=== PATIENT | male | born 1945 | race Caucasian/White ===

== ENCOUNTER 2018-04-15 07:16 | Day surgery (SDC) | payer OTHER ==
[~2018-04-15 07:16] MED LIST: EPINEPHrine 1 MG INJ; LIDOCAINE 1% (MPF) 10 ML INJ; TIMOLOL 0.5% 5 ML OPH
[2018-04-15] MEDS: PHENYLephrine 10% 5 ML OPH OPER (08:14)
[2018-04-15] MEDS: CYCLOPENTOLATE 2% 2 ML OPH OPER (08:15)
[2018-04-15] MEDS: NEPAFENAC 0.1% 3 ML OPH OPER (08:15)
[2018-04-15] MEDS: MOXIFLOXACIN 0.5% 3 ML OPH OPER (08:20)
[2018-04-15] MEDS ORDERED: SODIUM BICARBONATE (IV ADD) 50 ML (08:35)
[2018-04-15] MEDS ORDERED: BUPIVACAINE 0.75% (MPF) 10 ML INJ (08:42)
[2018-04-15] MEDS ORDERED: LIDOCAINE 2% (SDV) 5 ML INJ ×2 (08:42→09:22)
[2018-04-15] MEDS ORDERED: LIDOCAINE 1% (MPF) 10 ML INJ (08:42)
[2018-04-15] MEDS ORDERED: MIDAZOLAM 1 MG/ML 2 ML INJ (09:21)
[2018-04-15] MEDS ORDERED: PROPOFOL 20 ML (09:22)
[2018-04-15] MEDS ORDERED: FAMOTIDINE 20 MG INJ (09:23)
[2018-04-15] MEDS ORDERED: ONDANSETRON 4 MG INJ (09:23)
[2018-04-15] MEDS ORDERED: FENTAnyl 50 MCG/ML VIAL (09:23)
[2018-04-15] MEDS ORDERED: DIPHENHYDRAMINE 50 MG INJ IV (09:30)
[2018-04-15] MEDS ORDERED: HYDROmorphONE 1 MG/5 ML IV SYRINGE IV (09:30)
[2018-04-15] MEDS ORDERED: ONDANSETRON 4 MG INJ IV (09:30)
[2018-04-15] MEDS ORDERED: MEPERIDINE 25 MG INJ IV (09:30)
[2018-04-15] MEDS ORDERED: FENTAnyl 50 MCG/ML VIAL IV (09:30)
[2018-04-15] MEDS ORDERED: PROCHLORPERAZINE 10 MG INJ IV (09:30)
[2018-04-15] MEDS: TIMOLOL 0.5% 5 ML OPH LEFT EYE (09:42)
[2018-04-15] MEDS ORDERED: EPHEDrine SULFATE 50 MG/5 ML SYG (09:43)
== END 2018-04-15 12:00 | disposition home or self-care (01) ==
LOC: SDS 07:16
DX: H25.12 Age-related nuclear cataract, left eye (principal); I10 Essential (primary) hypertension; E11.9 Type 2 diabetes mellitus without complications
CPT/HCPCS: 66984; 82962

== ENCOUNTER 2018-10-28 08:25 | Day surgery (SDC) | payer OTHER ==
[2018-10-28] MEDS: PHENYLephrine 10% 5 ML OPH OPER ×2 (09:13→10:41)
[2018-10-28] MEDS: MOXIFLOXACIN 0.5% 3 ML OPH OPER ×2 (09:13→10:43)
[2018-10-28] MEDS: CYCLOPENTOLATE 2% 2 ML OPH OPER (09:13)
[2018-10-28] MEDS: NEPAFENAC 0.1% 3 ML OPH OPER (09:13)
[2018-10-28] MEDS ORDERED: LIDOCAINE 1% (MPF) 10 ML INJ (09:45)
[2018-10-28] MEDS ORDERED: NA BICARB 50 MEQ/50 ML VIAL (09:47)
[2018-10-28] MEDS ORDERED: EPINEPHrine 1 MG INJ (09:47)
[2018-10-28] MEDS ORDERED: LIDOCAINE 2% (SDV) 5 ML INJ ×2 (09:48→09:54)
[2018-10-28] MEDS ORDERED: PROPOFOL 20 ML (09:54)
[2018-10-28] MEDS ORDERED: ONDANSETRON 4 MG INJ IV (10:00)
[2018-10-28] MEDS ORDERED: MEPERIDINE 25 MG INJ IV (10:00)
[2018-10-28] MEDS ORDERED: METOCLOPRAMIDE 10 MG INJ IV (10:00)
[2018-10-28] MEDS ORDERED: MIDAZOLAM 1 MG/ML 2 ML INJ IV (10:00)
[2018-10-28] MEDS ORDERED: hydrALAzine 20 MG INJ IV (10:00)
[2018-10-28] MEDS ORDERED: DIPHENHYDRAMINE 50 MG INJ IV (10:00)
[2018-10-28] MEDS ORDERED: FENTAnyl 50 MCG/ML VIAL IV ×3 (10:00)
[2018-10-28] MEDS ORDERED: OXYCODONE/ACETAMINOPHEN (5/325) TAB PO ×2 (10:00)
[2018-10-28] MEDS ORDERED: EPHEDrine SULFATE 50 MG/5 ML SYG IV (10:00)
[2018-10-28] MEDS ORDERED: LABETALOL HCL 20MG INJ IV (10:00)
[2018-10-28] MEDS: TIMOLOL MALEATE/PF 0.5% OCCUDOSE (0.3 ML) (10:42)
== END 2018-10-28 13:39 | disposition home or self-care (01) ==
LOC: SDS 08:25
DX: H25.11 Age-related nuclear cataract, right eye (principal); I10 Essential (primary) hypertension; E11.9 Type 2 diabetes mellitus without complications; E78.5 Hyperlipidemia, unspecified
CPT/HCPCS: 66984; 82962